=== PATIENT | female | born 2005 | race American Indian/Alaskan Native ===

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

== ENCOUNTER 2024-01-21 04:40 | Emergency (ER) | payer MEDICAID | END 2024-01-21 05:13 | disposition home or self-care (01) | LOC: JP.ED 04:40 | DX: T16.2XXA Foreign body in left ear, initial encounter (principal); Z86.16 Personal history of COVID-19 | CPT/HCPCS: 69200; 99283 ==